=== PATIENT | female | born 1930 | race Caucasian/White ===

== ENCOUNTER → 2016-10-26 | Day surgery (SDC) | payer MEDICARE ==
[~2016-10-26] MED LIST: LACTATED RINGER'S 1000 ML INJ 1,000 ML ONE; PROPOFOL 200 MG/20 ML AMP IV ONE
--- NOTE | 2016-10-26 14:56 | GIPROC ---
[facility] [address] [facility], [address] EGD PROCEDURE REPORT EXAM DATE: 10/26/2016 PATIENT NAME: Rayna Marsh MR #: [id number] BIRTHDATE: 1930 ATTENDING: Peterson Combs MD ORDER #: [id number] [employer] SUPERVISOR: Mely London RN STATUS: outpatient INDICATIONS: The patient is a 85 yr old female here for an EGD due to H/O PUD PROCEDURE PERFORMED: EGD w/ biopsy MEDICATIONS: None and Per Anesthesia. TOPICAL ANESTHETIC: none CONSENT: The patient understands the risks and benefits of the procedure and understands that these risks include, but are not limited to: sedation, allergic reaction, infection, perforation and/or bleeding. Alternative means of evaluation and treatment include, among others: physical exam, x-rays, and/or surgical intervention. The patient elects to proceed with this endoscopic procedure. medical equipment was checked for proper function. Hand hygiene and appropriate measures for infection prevention was taken. After the risks, benefits and alternatives of the procedure were thoroughly explained, Informed consent was verified, confirmed and timeout was successfully executed by the treatment team. The patient was anesthetized with topical anesthesia and the EC-[id number] ([id number]) endoscope was introduced through the mouth and advanced to the second portion of the duodenum. Retroflexed views revealed no abnormalities The gastroscope was then slowly withdrawn and removed. Small ulcer in the pyloric channel Bx done. ADVERSE EVENTS: There were no complications. IMPRESSIONS: 1. Small ulcer in the pyloric channel Bx done 2. Retroflexed views revealed no abnormalities RECOMMENDATIONS: 1. Await biopsy results. Biopsy results will not be ready for 7-10 days. If you don't hear from us in two weeks, call our office for biopsy results. 2. Continue PPI 3. Avoid NSAIDS PATIENT CONDITION: stable DISPOSITION: Home REPEAT EXAM: Return 2 months EGD Peterson Combs MD eSigned: Peterson Combs MD 10/26/2016 2:56 PM cc: Dr. Aniyah Gupta
== END | disposition home or self-care (01) ==
LOC: ESDC 13:02
PROVIDERS: ATTEND Hospitalist
DX: Z87.11 Personal history of peptic ulcer disease (principal); K26.9 Duodenal ulcer, unspecified as acute or chronic, without hemorrhage or perforation
CPT/HCPCS: 00740; 43239; 88305; J7120

== ENCOUNTER → 2017-01-20 | Day surgery (SDC) | payer MEDICARE ==
[~2017-01-20] MED LIST changes: -LACTATED RINGER'S 1000 ML INJ 1,000 ML ONE; +PROPOFOL 100 MG/10 ML INJ IV ONE; -PROPOFOL 200 MG/20 ML AMP IV ONE
--- NOTE | 2017-01-20 10:36 | GIPROC ---
[facility] [address] [facility], [address] EGD PROCEDURE REPORT EXAM DATE: 01/20/2017 PATIENT NAME: Rayna Marsh MR #: [id number] BIRTHDATE: 1930 ATTENDING: Guido Rocha MD ORDER #: [id number] ELECTRICAL INSTRUMENT MAKER: Praveen Almazan RN STATUS: outpatient INDICATIONS: The patient is a 86 yr old female here for an EGD due to follow up on gastric ulcer PROCEDURE PERFORMED: EGD w/ biopsy MEDICATIONS: None, Per Anesthesia, None, and Per Anesthesia. TOPICAL ANESTHETIC: CONSENT: The patient understands the risks and benefits of the procedure and understands that these risks include, but are not limited to: sedation, allergic reaction, infection, perforation and/or bleeding. Alternative means of evaluation and treatment include, among others: physical exam, x-rays, and/or surgical intervention. The patient elects to proceed with this endoscopic procedure. medical equipment was checked for proper function. Hand hygiene and appropriate measures for infection prevention was taken. After the risks, benefits and alternatives of the procedure were thoroughly explained, Informed consent was verified, confirmed and timeout was successfully executed by the treatment team. The patient was anesthetized with topical anesthesia and the EG-[id number] ([id number]) endoscope was introduced through the mouth and advanced to the second portion of the duodenum. Retroflexed views revealed no abnormalities The gastroscope was then slowly withdrawn and removed. ESOPHAGUS: The mucosa of the esophagus appeared normal. STOMACH: The mucosa of the stomach appeared normal. DUODENUM: The duodenal mucosa appeared normal. ADVERSE EVENTS: There were no complications. IMPRESSIONS: 1. The esophagus appeared normal 2. The mucosa of the stomach appeared normal 3. Normal duodenal mucosa 4. Retroflexed views revealed no abnormalities RECOMMENDATIONS: 1. Continue PPI 2. Follow-up: GI clinic PRN PATIENT CONDITION: stable DISPOSITION: Home REPEAT EXAM: Guido Rocha MD eSigned: Guido Rocha MD 01/20/2017 10:35 AM cc: Dr. Aniyah Archer [facility] PATIENT NAME: Rayna Marsh MR#: [id number]
== END | disposition home or self-care (01) ==
LOC: ESDC 08:57
PROVIDERS: ATTEND Internal Medicine Gastroenterology
DX: K25.9 Gastric ulcer, unspecified as acute or chronic, without hemorrhage or perforation (principal)